=== PATIENT | male | born 1995 | race Caucasian/White ===

== ENCOUNTER 2016-05-26 18:44 | Emergency (ER) | payer BC, OTHER ==
[~2016-05-26] VITALS: Ht 172.7 cm; Wt 111.2 kg
[2016-05-26 18:48] VITALS: TEMP 36.6; Ht 172.7 cm; Wt 111.2 kg
[2016-05-26 19:21] LABS: URINE APPEARANCE CLEAR (CLEAR); URINE BILIRUBIN NEG (NEG); URINE COLOR YELLOW; URINE NITRITE NEG (NEG); URINE PH 5.5 (4.5-7.5); URINE SPECIFIC GRAVITY 1.025 (1.000-1.030); UROBILINOGEN NEG (NEG)
[2016-05-26 19:26] LABS: MANUAL MICROSCOPIC REQUIRED? NO; REVIEW REQ? NO
[2016-05-26] MEDS ORDERED: MULT-506 PO (19:38)
[2016-05-26] MEDS ORDERED: PALI6TAB PO (19:38)
[2016-05-26] MEDS ORDERED: HYDR25CA PO (19:47)
[2016-05-26] MEDS ORDERED: FLUP10TA PO (19:47)
[2016-05-26] MEDS ORDERED: BUPRTAB PO (19:47)
--- NOTE | 2016-05-26 19:52 | EMERGENCY ROOM VISIT NOTE ---
History Report prepared by Lashaun: Jamaica Guevara Under the Supervision of: Dr. Phill Staley M.D. First contact with patient: 19:05 Chief Complaint: MENTAL HEALTH EVALUATION Stated Complaint: MENTAL HEALTH History of Present Illness The patient is a 20 year old male who presents to the Emergency Room for a mental health evaluation after a referral from his doctor. The patient states that his thoughts have been racing constantly beginning a few days ago. He reports that he has a history of depression and his symptoms have been worsening so he called his doctor and he recommended inpatient treatment. He notes that he has been having thoughts of hurting himself with plans to jump in front of traffic or off of a building triggered from feelings of inadequacy. The patient states that he feels that he cannot form rational thoughts, he complains of sensitive hearing following a hallucination of someone screaming in his ear. He notes that he has a psychiatrist and has been taking his prescribed medications. He has occasional alcohol use but none today. He notes no drug use. He denies any ingestions. Pt denies LOC, headache, fevers, chills, diaphoresis, visual changes, neck pain, chest pain, breathing difficulties, nausea, vomiting, abdominal pain, back pain, melena, hematochezia , urinary symptoms, numbness, weakness, lymphadenopathy, rash, or other complaints. Source of History: patient Onset: a few days ago Position: other (mental health) Timing: constant Review of Systems See HPI for pertinent positives and negatives. A total of ten systems were reviewed and were otherwise negative. Past Medical & Surgical Medical Problems: (1) Asthma (2) Depression (3) Schizophrenia Family History No pertinent family history stated. Social History Smoking Status: Current Every Day Smoker Marital Status: single Occupation Status: [employer] student Current/Historical Medications Scheduled Bupropion Hcl (Wellbutrin Xl), 150 TAB PO QAM Fluphenazine Hcl (Prolixin), 10 MG PO QAM Hydroxyzine Pamoate (Vistaril), 25 MG PO HS Multivitamin (Multivitamin), 1 TAB PO DAILY Paliperidone (Invega), 12 MG PO QAM Allergies Coded Allergies: No Known Allergies (Unverified , 05/26/16) Physical Exam Vital Signs Date Time Temp Pulse Resp B/P Pulse Ox O2 Delivery O2 Flow Rate FiO2 05/27/16 00:47 76 20 126/77 98 Room Air 05/26/16 20:40 99 16 130/82 96 Room Air 05/26/16 18:48 36.6 108 18 148/84 96 Room Air Physical Exam GENERAL: Awake, alert, mildly anxious appearing HENT: Normocephalic, atraumatic. TM's normal. Oropharynx unremarkable. EYES: PERRL. EOMI. Normal conjunctiva. Sclera non-icteric. NECK: Supple. No nuchal rigidity. FROM. No JVD or bruit. RESPIRATORY: CTA CARDIAC: RRR. No murmur. ABDOMEN: Soft, non distended. No tenderness to palpation. No rebound or guarding. No masses. MUSCULOSKELETAL: Unremarkable. No edema. No discoloration. Gross motor strength symmetric. NEURO: Cranial nerves 2-12 grossly intact. Normal sensorium. No sensory or motor deficits noted. Speech normal. No pronator drift. SKIN: No rash or jaundice noted. LYMPH: No adenopathy. PSYCH: Depressed mood. Suicidal ideation with plan of jumping into traffic or off of building. Affect is flat. There are some auditory hallucinations present. Medical Decision & Procedures Laboratory Results 05/26/16 19:47 Red Blood Count 4.86, Mean Corpuscular Volume 88.7, Mean Corpuscular Hemoglobin 29.0, Mean Corpuscular Hemoglobin Concent 32.7, Mean Platelet Volume 10.5, Neutrophils (%) (Auto) 74.4, Lymphocytes (%) (Auto) 14.3, Monocytes (%) (Auto) 8.9, Eosinophils (%) (Auto) 2.0, Basophils (%) (Auto) 0.1, Neutrophils # (Auto) 10.14, Lymphocytes # (Auto) 1.95, Monocytes # (Auto) 1.22, Eosinophils # (Auto) 0.27, Basophils # (Auto) 0.02 05/26/16 19:47 Test 05/26/16 19:00 05/26/16 19:47 Urine Color YELLOW Urine Appearance CLEAR (CLEAR) Urine pH 5.5 (4.5-7.5) Urine Specific Stewardson 1.025 (1.000-1.030) Urine Protein NEG (NEG) Urine Glucose (UA) NEG (NEG) Urine Ketones NEG (NEG) Urine Occult Blood NEG (NEG) Urine Nitrite NEG (NEG) Urine Bilirubin NEG (NEG) Urine Urobilinogen NEG (NEG) Urine Leukocyte Esterase NEG (NEG) Urine Opiates Screen NEG (NEG) Urine Methadone, Qualitative NEG (NEG) Urine Barbiturates NEG (NEG) Urine Phencyclidine (PCP) Level NEG (NEG) Ur Amphetamine/Methamphetamine NEG (NEG) MDMA (Ecstasy) Screen POS (NEG) Urine Benzodiazepines Screen NEG (NEG) Urine Cocaine Metabolite NEG (NEG) Urine Marijuana (THC) NEG (NEG) White Blood Count 13.64 K/uL (4.8-10.8) Red Blood Count 4.86 M/uL (4.7-6.1) Hemoglobin 14.1 g/dL (14.0-18.0) Hematocrit 43.1 % (42-52) Mean Corpuscular Volume 88.7 fL (80-100) Mean Corpuscular Hemoglobin 29.0 pg (25-34) Mean Corpuscular Hemoglobin Concent 32.7 g/dl (32-36) Platelet Count 202 K/uL (130-400) Mean Platelet Volume 10.5 fL (7.4-10.4) Neutrophils (%) (Auto) 74.4 % Lymphocytes (%) (Auto) 14.3 % Monocytes (%) (Auto) 8.9 % Eosinophils (%) (Auto) 2.0 % Basophils (%) (Auto) 0.1 % Neutrophils # (Auto) 10.14 K/uL (1.4-6.5) Lymphocytes # (Auto) 1.95 K/uL (1.2-3.4) Monocytes # (Auto) 1.22 K/uL (0.11-0.59) Eosinophils # (Auto) 0.27 K/uL (0-0.5) Basophils # (Auto) 0.02 K/uL (0-0.2) RDW Standard Deviation 47.1 fL (36.4-46.3) RDW Coefficient of Variation 14.5 % (11.5-14.5) Immature Granulocyte % (Auto) 0.3 % Immature Granulocyte # (Auto) 0.04 K/uL (0.00-0.02) Anion Gap 8.0 mmol/L (3-11) Est Creatinine Clear Calc Drug Dose 107.8 ml/min Estimated GFR () 89.8 Estimated GFR (Non- 77.5 BUN/Creatinine Ratio 9.0 (10-20) Calcium Level 8.4 mg/dl (8.5-10.1) Total Bilirubin 0.3 mg/dl (0.2-1) Direct Bilirubin < 0.1 mg/dl (0-0.2) Aspartate Amino Transf (AST/SGOT) 7 U/L (15-37) Alanine Aminotransferase (ALT/SGPT) 30 U/L (12-78) Alkaline Phosphatase 96 U/L (45-117) Total Protein 6.5 gm/dl (6.4-8.2) Albumin 3.4 gm/dl (3.4-5.0) Globulin 3.1 gm/dl (2.5-4.0) Albumin/Globulin Ratio 1.1 (0.9-2) Thyroid Stimulating Hormone (TSH) 0.411 uIu/ml (0.300-4.500) Salicylates Level < 1.7 mg/dl (2.8-20) Acetaminophen Level < 2 ug/ml (10-30) Ethyl Alcohol mg/dL < 3.0 mg/dl (0-3) Laboratory results reviewed by me Medications Administered Medications (Trade) Dose Ordered Sig/Terri Route Start Time Stop Time Status Last Admin Dose Admin Nicotine Polacrilex (Nicorette 2MG Gum) 1 piece PRN STAT MT 05/26/16 22:03 05/26/16 22:04 DC 05/26/16 22:09 1 PIECE Nicotine (Nicoderm Cq 14MG Patch) 1 patch NOW STAT TD 05/26/16 23:24 05/26/16 23:25 DC 05/26/16 23:28 1 PATCH ED Course 1904: The patient was evaluated in room A5. A complete history and physical exam was performed. 2200: I reevaluated the patient. He is a smoker and would like some nicotine gum. 2202: Nicorette 2mg Gum 1 piece MT. 2251: I reevaluated the patient. He has been accepted to [facility] and I signed the paperwork. 2258: The patient is being transferred to a mental health acute care facility for further management. 2301: Upon reexamination, the patient was hemodynamically stable. I discussed the test results and treatment plan with the patient. The patient will be evaluated for further management. Medical Decision Triage Nursing notes reviewed. The patient's presentation and history were concerning for suicidal thoughts. Etiologies such as mood disorder, toxicologic, infection, hypoglycemia, electrolyte abnormalities, cardiac sources, intracerebral event, neurologic, as well as others were entertained. The patient was evaluated. He had suicidal ideation. No medical issues were found on physical examination. Blood work and urinalysis were obtained. The patient was evaluated by the Emergency Room psychiatric supportive employment case manager. The patient had a slight leukocytosis on CBC but no signs of infection or symptoms to suggest infection. He had an unremarkable urine test. Chem panel, Tylenol, salicylate, and ethanol levels were negative. The patient's drug screen did reveal MDMA however the patient is on Wellbutrin. The patient was given nicotine gum as well as a patch. Case management was able to [place] [facility] [place] was [place] for psychiatric [place]. Secure transfer was arranged and the patient was sent for inpatient treatment. His psychiatrist did notify the Emergency Room about the likely sharp of admission. There are no beds available here or the [facility]. The chart was completed utilizing [employer] Speech voice recognition software. Grammatical errors, random word insertions, pronoun errors, and incomplete sentences are an occasional consequence of this system due to software limitations, ambient noise, and hardware issues. Any formal questions or concerns about the content, text, or information contained within the body of this dictation should be directly addressed to the physician for clarification. Impression Primary Impression: Suicidal ideation Additional Impression: Mood disorder Scribe Attestation The scribe's documentation has been prepared under my direction and personally reviewed by me in its entirety. I confirm that the note above accurately reflects all work, treatment, procedures, and medical decision making performed by me. Departure Information Dispostion Mental Health Acute Care Referrals No Doctor, Assigned (PCP) Forms HOME CARE DOCUMENTATION FORM, IMPORTANT VISIT INFORMATION Patient Instructions My [facility] Problem Qualifiers
[2016-05-26 19:59] LABS: BASO % 0.1 %; BASO ABS # 0.02 K/uL (0-0.2); COMPLETE YES; HEMATOCRIT 43.1 % (42-52); IG% 0.3 %; LYMPH % 14.3 %; LYMPH ABS # 1.95 K/uL (1.2-3.4); MEAN CELL VOLUME 88.7 fL (80-100); MEAN CORPUSCULAR HGB CONC 32.7 g/dl (32-36); MEAN PLATELET VOLUME 10.5 fL (7.4-10.4); MONO % 8.9 %; NEUT % 74.4 %; PLATELET COUNT 202 K/uL (130-400); RED BLOOD COUNT 4.86 M/uL (4.7-6.1); WHITE BLOOD COUNT 13.64 K/uL (4.8-10.8)
[2016-05-26 20:10] LABS: BENZODIAZEPINE, URINE NEG (NEG); COCAINE,URINE NEG (NEG); PHENCYCLIDINE, URINE NEG (NEG)
[2016-05-26 20:25] LABS: ALT/SGPT 30 U/L (12-78); AST/SGOT 7 U/L (15-37); BLOOD UREA NITROGEN 12 mg/dl (7-18); CALCIUM 8.4 mg/dl (8.5-10.1); CARBON DIOXIDE 27 mmol/L (21-32); CHLORIDE 107 mmol/L (98-107); GLUCOSE 100 mg/dl (70-99); POTASSIUM 3.7 mmol/L (3.5-5.1); SODIUM 142 mmol/L (136-145)
[2016-05-26 20:29] LABS: ACETAMINOPHEN < 2 ug/ml (10-30)
[2016-05-26 20:35] LABS: ALB/GLOB RATIO 1.1 (0.9-2); ALKALINE PHOSPHATASE 96 U/L (45-117); THYROID STIMULATING HORMONE 0.411 uIu/ml (0.300-4.500)
[2016-05-26] MEDS ORDERED: NICOTINE POLACRILEX 2 MG GUM MT STA (22:03)
[2016-05-26] MEDS ORDERED: NICOTINE 14 MG/24 HR TDSY TD STA (23:24)
[2016-05-27 00:47] VITALS: BP 126/77; PULSE 76; O2SAT 98
== END 2016-05-27 01:15 ==
LOC: C.EDB 18:51 → C.EDA 05-27 01:15
DX: R45.851 Suicidal ideations (principal); F39 Unspecified mood [affective] disorder; J45.909 Unspecified asthma, uncomplicated; F17.200 Nicotine dependence, unspecified, uncomplicated

== ENCOUNTER 2016-09-02 23:35 | Emergency (ER) | payer BC ==
[~2016-09-02] VITALS: Ht 172.7 cm; Wt 112.0 kg
[~2016-09-02 23:35] MED LIST: BUPRTAB PO; FLUP10TA PO; HYDR25CA PO; MULT-506 PO; PALI6TAB PO
[2016-09-02 23:39] VITALS: TEMP 36.5; Ht 172.7 cm; Wt 112.0 kg
[2016-09-03] MEDS ORDERED: LIDOCAINE HCL 2% VISC SOLN 20 ML UDC PO STA
[2016-09-03] MEDS ORDERED: ALUMINUM/MAGNESIUM SUSP 30 ML UDC PO STA
[2016-09-03] MEDS ORDERED: SODIUM CHLORIDE 0.9% 1000ML 1,000 ML IV STA
[2016-09-03] MEDS ORDERED: BUPRTAB51 PO (00:09)
[2016-09-03] MEDS ORDERED: ZOLP10TA PO (00:09)
[2016-09-03] MEDS ORDERED: FLUP5TAB PO ×2 (00:09)
[2016-09-03 00:22] LABS: BASO % 0.3 %; BASO ABS # 0.03 K/uL (0-0.2); COMPLETE YES; EOS % 5.3 %; IG% 0.2 %; LYMPH % 28.1 %; LYMPH ABS # 2.85 K/uL (1.2-3.4); MEAN CELL VOLUME 91.9 fL (80-100); MEAN CORPUSCULAR HGB CONC 31.6 g/dl (32-36); MEAN PLATELET VOLUME 9.9 fL (7.4-10.4); MONO % 11.8 %; NEUT % 54.3 %; PLATELET COUNT 217 K/uL (130-400); RED BLOOD COUNT 4.79 M/uL (4.7-6.1); WHITE BLOOD COUNT 10.16 K/uL (4.8-10.8)
[2016-09-03] MEDS ORDERED: OPTIRAY 320 IV PRN (00:30)
[2016-09-03 00:43] LABS: CALCIUM 8.5 mg/dl (8.5-10.1); CREATININE 1.1 mg/dl (0.60-1.40); POTASSIUM 3.6 mmol/L (3.5-5.1)
[2016-09-03] MEDS ORDERED: PANTOprazole SOD 40 MG TAB PO STA (01:42)
--- NOTE | 2016-09-03 01:42 | EMERGENCY ROOM VISIT NOTE ---
History First contact with patient: 23:50 Chief Complaint: THROAT PAIN/INJURY Stated Complaint: HAS SOMETHING IN HIS THROAT THAT IS SCARING HIM History of Present Illness The patient is a 20 year old male who presents to the Emergency Room with complaints of feeling that something is caught in his throat for the past 2 days that is worse with swallowing but is able to tolerate fluids and food. Patient does smoke and occasionally drinks alcohol. No drug use. Patient states symptoms started when he is smoking a cigarette. He has not tried anything for his symptoms. Patient denies chest pain, dyspnea, fever, chills, cough, congestion, flulike illness, abdominal pain, black or blood in his stool. Review of Systems See HPI for pertinent positives & negatives. A total of 10 systems reviewed and were otherwise negative. Past Medical/Surgical History Medical Problems: (1) Asthma (2) Depression (3) Schizophrenia Social History Smoking Status: Current Every Day Smoker Alcohol Use: occasionally Drug Use: none Marital Status: single Occupation Status: [employer] student Current/Historical Medications Scheduled Bupropion Hcl (Wellbutrin Xl), 300 MG PO QAM Fluphenazine Hcl (Prolixin), 5 MG PO QAM Fluphenazine Hcl (Prolixin), 7.5 MG PO HS Multivitamin (Multivitamin), 1 TAB PO DAILY Paliperidone (Invega), 12 MG PO QAM Zolpidem Tartrate (Ambien), 10 MG PO HS Allergies Coded Allergies: No Known Allergies (Unverified , 09/03/16) Physical Exam Vital Signs Date Time Temp Pulse Resp B/P Pulse Ox O2 Delivery O2 Flow Rate FiO2 09/03/16 00:45 Room Air 09/02/16 23:39 36.5 87 19 136/83 95 Room Air Physical Exam VITALS: Vitals are noted on the nurse's note and reviewed by myself. Vital signs stable. GENERAL: Pleasant male, in no acute distress, nondiaphoretic, well-developed well-nourished. SKIN: The skin was without rashes, erythema, edema, or bruising. There is no tenting of the skin. Capillary reflex less than 2 seconds. HEAD: Normocephalic atraumatic. EARS: External auditory canals clear, tympanic membranes pearly pérez without erythema or effusion bilaterally. EYES: Pupils equal round and reactive to light and accommodation. Conjunctivae without injection, sclerae without icterus. Extraocular movements intact. NOSE: Patent, turbinates without inflammation or discharge. No sinus tenderness. MOUTH: Mucous membranes moist. Pharynx without erythema or exudate. Uvula midline. Airway patent. Tongue does not deviate. NECK: Supple without nuchal rigidity. No lymphadenopathy. No thyromegaly. Cervical spine is nontender. No JVD. HEART: Regular rate and rhythm without murmurs gallops or rubs. LUNGS: Clear to auscultation bilaterally without wheezes, rales or rhonchi. No dullness to percussion. No retractions or accessory muscle use. ABDOMEN: Positive bowel sounds x 4. Normal tympanic percussion. Soft, nontender, without masses or organomegaly. Garcia sign negative. No guarding or rebound tenderness. MUSCULOSKELETAL: No muscle atrophy, erythema, or edema noted. NEURO: Patient was alert and oriented to person place and time. Normal sensation to light and sharp touch. No focal neurological deficits. Medical Decision & Procedures Laboratory Results 09/03/16 00:11 Red Blood Count 4.79, Mean Corpuscular Volume 91.9, Mean Corpuscular Hemoglobin 29.0, Mean Corpuscular Hemoglobin Concent 31.6, Mean Platelet Volume 9.9, Neutrophils (%) (Auto) 54.3, Lymphocytes (%) (Auto) 28.1, Monocytes (%) (Auto) 11.8, Eosinophils (%) (Auto) 5.3, Basophils (%) (Auto) 0.3, Neutrophils # (Auto ) 5.52, Lymphocytes # (Auto) 2.85, Monocytes # (Auto) 1.20, Eosinophils # (Auto ) 0.54, Basophils # (Auto) 0.03 09/03/16 00:11 Test 09/03/16 00:11 White Blood Count 10.16 K/uL (4.8-10.8) Red Blood Count 4.79 M/uL (4.7-6.1) Hemoglobin 13.9 g/dL (14.0-18.0) Hematocrit 44.0 % (42-52) Mean Corpuscular Volume 91.9 fL (80-100) Mean Corpuscular Hemoglobin 29.0 pg (25-34) Mean Corpuscular Hemoglobin Concent 31.6 g/dl (32-36) Platelet Count 217 K/uL (130-400) Mean Platelet Volume 9.9 fL (7.4-10.4) Neutrophils (%) (Auto) 54.3 % Lymphocytes (%) (Auto) 28.1 % Monocytes (%) (Auto) 11.8 % Eosinophils (%) (Auto) 5.3 % Basophils (%) (Auto) 0.3 % Neutrophils # (Auto) 5.52 K/uL (1.4-6.5) Lymphocytes # (Auto) 2.85 K/uL (1.2-3.4) Monocytes # (Auto) 1.20 K/uL (0.11-0.59) Eosinophils # (Auto) 0.54 K/uL (0-0.5) Basophils # (Auto) 0.03 K/uL (0-0.2) RDW Standard Deviation 47.3 fL (36.4-46.3) RDW Coefficient of Variation 14.0 % (11.5-14.5) Immature Granulocyte % (Auto) 0.2 % Immature Granulocyte # (Auto) 0.02 K/uL (0.00-0.02) Anion Gap 7.0 mmol/L (3-11) Est Creatinine Clear Calc Drug Dose 127.9 ml/min Estimated GFR () 109.9 Estimated GFR (Non- 94.8 BUN/Creatinine Ratio 9.0 (10-20) Calcium Level 8.5 mg/dl (8.5-10.1) Medications Administered Medications (Trade) Dose Ordered Sig/Terri Route Start Time Stop Time Status Last Admin Dose Admin Lidocaine HCl (Viscous Lidocaine 2% Soln) 10 ml NOW STAT PO 09/03/16 00:00 09/03/16 00:03 DC 09/03/16 00:19 10 ML Al Hydroxide/Mg Hydroxide 30 ml 30 ml NOW STAT PO 09/03/16 00:00 09/03/16 00:03 DC 09/03/16 00:19 30 ML Sodium Chloride (Nss 1000ml) 1,000 ml @ 999 mls/hr Q1H1M STAT IV 09/03/16 00:00 09/03/16 01:00 DC 09/03/16 00:00 999 MLS/HR ED Course Prior records/ancillary studies reviewed. Triage Nursing notes reviewed. Additional history obtained from family The patient's history was concerning for a dysphagia. Differential diagnosis: Etiologies such as GERD, foreign body, esophagitis, esophageal irritation, streptococcal pharyngitis, mononucleosis, peritonsillar abscess, retropharyngeal abscess, otitis, pneumonia, influenza, as well as others were entertained. ER treatment provided: GI cocktail On reassessment the patient felt better. Diagnostics interpreted by me: The labs revealed no worrisome leukocytosis or electrolyte abnormality Imaging studies: CT NECK: No abscess or bulky lesion. Epiglottis is unremarkable. No airway compromise. Radiologist: Bogdan Grace M.D. This appears to be consistent with irritation that could be from reflux. Patient was neurovascularly and neurologically intact. He was well-appearing. He is tolerating fluids. He felt better to be medicated as above. He was strongly encouraged to quit smoking and to take medications as directed. He is advised follow-up family care in a few days or here in the ER sooner for dysphagia, fevers, black or blood in the stool, worsening signs or symptoms or as needed. Patient no signs of meningitis or airway compromise. He was well- appearing. By the evaluation outlined above emergent etiologies such as peritonsillar abscess, retropharyngeal abscess, otitis, pneumonia, meningitis, urinary tract infection, sepsis, bacteremia, as well as others were deemed relatively unlikely. The pt informed about the findings as listed above. All questions were answered and pleased with the treatment. Return instructions were outlined and the patient was discharged in stable condition. Outpatient prescription management: Protonix Referral: The patient was referred back to their primary care physician for follow-up in 2 to 3 days for a recheck of the current condition. Case reviewed with my attending Medical Decision As above Impression Primary Impression: Throat irritation Additional Impression: GERD (gastroesophageal reflux disease) Departure Information Dispostion Home / Self-Care Condition GOOD Referrals Abraham Gutierrez M.D. (PCP) Patient Instructions My [facility] Additional Instructions Protonix 40 m tablet daily for next 2 weeks. Take this on an empty stomach. Try Maalox or Zantac for breakthrough symptoms for reflux. Avoid large meals. Avoid acidic foods. Rest and drink plenty of fluids as tolerated. Continue current medications. Avoid strenuous activities and anything that worsens your pain. Resume normal activities once your symptoms resolve. Recommend stop smoking. Return to the ER immediately for worsening or persistent chest pain, abdominal pain, black or blood in your stools, vomiting, fevers, chest pains, difficulty breathing, worsening of your condition, or as needed. Follow up with your primary physician in 2-3 days for a recheck of your current condition. Problem Qualifiers
[2016-09-03] MEDS ORDERED: PANT40TA PO (01:43)
[2016-09-03 01:57] VITALS: BP 130/86; PULSE 84; O2SAT 96
--- NOTE | 2016-09-03 06:45 | DIAGNOSTIC IMAGING REPORT ---
CT soft tissue neck SOFT TISSUE NECK WITH CLINICAL HISTORY: severe dysphagia, to abuse dysphagia TECHNIQUE: Transaxial acquisition. Multiple axial reformatted images. COMPARISON STUDY: None FINDINGS: All major soft tissue structures are unremarkable. Salivary glands are within normal limits. Thyroid is symmetric. Glottic and subglottic regions are unremarkable. There is no evidence for airway compromise. IMPRESSION: Negative study Electronically signed by: Javier Cárdenas M.D. 09/03/2016 6:43 AM Dictated Date/Time: 09/03/2016 6:42 AM
== END 2016-09-03 01:57 | disposition home or self-care (01) ==
LOC: C.EDB 23:37 → C.EDC 09-03 01:57
DX: R07.0 Pain in throat (principal); K21.9 Gastro-esophageal reflux disease without esophagitis; J45.909 Unspecified asthma, uncomplicated; F20.9 Schizophrenia, unspecified; F32.9 Major depressive disorder, single episode, unspecified; F17.200 Nicotine dependence, unspecified, uncomplicated; Z79.899 Other long term (current) drug therapy

== ENCOUNTER → 2017-08-27 | Day surgery (SDC) | payer BC ==
[2017-08-17 13:59] VITALS: BMI 38.0
--- NOTE | 2017-08-26 08:35 | History and Physical: Surg Cnt ---
History & Physical Date August 26, 2017. Chief Complaint sinus infections History of Present Illness The patient is a 21 year old male with complaints of chronic sinusitis with CT showing left maxillary sinus fungus ball Past Medical/Surgical History Medical Problems: (1) Asthma (2) Depression (3) Schizophrenia Additional History Hepatic Disease: No Endocrine Disorder: No Kidney Disease: No Hypertension: No Heart Disease: No Bleeding Tendencies: No Infectious Diseases: No Allergies Coded Allergies: NO KNOWN DRUG ALLERGIES (Verified Allergy, Unknown, ., 08/17/17) Uncoded Allergies: ENVIRONMENTAL ALLERGIES (Allergy, Unknown, GRASS, DUST, MOLD, TREES, ) Home Medications Scheduled Dextromethorphan Hbr-Quinidine (Nuedexta), 1 CAP PO QAM [id number] (Deplin 15), 1 CAP PO QAM Paliperidone (Invega), 2 TAB PO HS Zolpidem Tartrate (Ambien), 10 MG PO HS Scheduled PRN Lorazepam (Ativan), 1 MG PO BID PRN for Anxiety Physical Examination Skin: warm/dry, no rash Eyes: normal inspection, EOMI, sclerae normal ENT: normal ENT inspection, pharynx normal Head: normocephalic, atraumatic Neck: supple, no adenopathy, trachea midline Respiratory/Chest: lungs clear, normal breath sounds, no respiratory distress Cardiovascular: regular rate, rhythm, no edema, no murmur Abdomen / GI: normal bowel sounds, non tender Back: normal inspection Extremities: normal inspection, normal range of motion Neurologic/Psych: no motor/sensory deficits, alert, normal reflexes, oriented x 3 Diagnosis sinusitis with left maxillary fungus ball Plan of Treatment endoscopic sinus surgery
[~2017-08-27] VITALS: Ht 172.7 cm; Wt 115.9 kg
[~2017-08-27] MED LIST changes: +ATROPINE SULFATE 0.1 MG/ML 5ML SYR IV PRN; +ATV/1 PO; -BUPRTAB PO; +CEFAZOLIN 2000MG IV PUSH 15 ML IV SCH; +CEFAZOLIN 3000MG IV PUSH 22.5 ML IV SCH; +DEXAMETHASONE SOD INJ 4 MG/ML VIAL ONE; +DEXT20CA PO; +EpHEDrine SULFATE INJ 50 MG/ML AMP IV PRN; +EpINEphrine INJ 1MG/ML AMP 1 MG/ML AMP ONE; +FENTANYL CITRATE INJ 50 MCG/1 ML 2 ML VIAL IV PRN; +FENTANYL CITRATE INJ 50 MCG/1 ML 2 ML VIAL ONE; -FLUP10TA PO; +GLYCOPYRROLATE INJ 0.2 MG/ML VIAL ONE; -HYDR25CA PO; +L-ME1CAP PO; +LACTATED RINGER'S 1000ML 1,000 ML IV SCH; +LIDO 2%/EPINEPHRINE 1:100000 20 ML VIAL ONE; +LIDOCAINE 4% MPF SOAK 5 ML = 1 DOSE ONE; +LIDOCAINE HCL 2% 2 ML VIAL (20MG/ML) ONE; +MIDAZOLAM HCL 1 MG/ML 2ML VIAL ONE; +NEOSTIGMINE METHYLSULFATE 5 MG/5 ML SYR ONE; +ONDANSETRON INJ 2 MG/ML 2 ML VIAL IV PRN; +ONDANSETRON INJ 2 MG/ML 2 ML VIAL ONE; +OXYCODONE/ACETAMINOPHEN 5-325 TAB PO PRN; +PROPOFOL IV EMULSION 10 MG/ML 20 ML VIAL ONE; +ROCURONIUM BROMIDE 10 MG/ML 5 ML VIAL ONE; +SCOPOLAMINE 1.5 MG TDSY TD ONE; +SODIUM CHLORIDE 0.9% 1000ML 1,000 ML IV SCH; +SUCCINYLCHOLINE CHLORIDE 20 MG/ML 10 ML VIAL IV ONE; +TRAM-453 PO; +ZOLP10TA PO
--- NOTE | 2017-08-27 08:03 | History & Physical Bridge Note ---
H&P Re-Evaluation Bridge Note: I have examined the patient, reviewed the History & Physical and in the interval since the performance of the History & Physical I have noted the following changes of clinical significance: No changes noted
[2017-08-27 08:06] VITALS: Ht 172.7 cm; Wt 115.9 kg
--- NOTE | 2017-08-27 10:10 | Discharge Instructions-SurgCtr ---
Discharge Instructions Date of Service August 27, 2017. Visit Reason for Visit: Chronic Sinusitis, Fungus Ball Left Maxillary Discharge Discharge Diagnosis / Problem: same Discharge Goals Goal(s): Therapeutic intervention Activity Recommendations Activity Limitations: resume your previous activity Anesthesia . Post Anesthesia Instructions: If you have had General Anesthesia or IV Sedation: * Do not drive today. * Resume driving when surgeon permits. * Do not make important decisions or sign legal documents today. * Call surgeon for: 1. Temperature elevations greater than 101 degrees F. 2. Uncontrollable pain. 3. Excessive bleeding. 4. Persistent nausea and vomiting. 5. Medication intolerance (nausea, vomiting or rash). * For nausea and vomiting use only clear liquids such as: tea, soda, bouillon until nausea subsides, then gradually increase diet as tolerated. * If you have any concerns or questions, call your surgeon's office. If physician is unavailable and it is an emergency, call 911 or go to the nearest emergency room. . Instructions / Follow-Up Instructions / Follow-Up ACTIVITY RECOMMENDATIONS: * Being up and around is good, but no strenuous activity, heavy lifting or physical exertion for one week. * Keep your head elevated 30 degrees when lying down or sleeping. * Do not blow your nose for 48 hours, sniff back instead. * Avoid hot showers. OVER THE COUNTER MEDICATIONS: * You may use Tylenol * Avoid aspirin or aspirin containing products, e.g. as they may increase bleeding. SPECIAL CARE INSTRUCTIONS: * Expect to have bloody drainage from your nose and/or down your throat for one to three days. Change drip pad as needed. * Begin irrigating your nose with saline solution today, at least six to ten times per day and sniff back to help remove old clots or crust. * You may experience nasal and facial congestion, pain and pressure, this is normal. * Please call with any significant and/or progressive pain, redness, swelling around the eyes, visual changes, fever of 101.5 degrees F, active bleeding or any problems or concerns. * If active bleeding occurs, spray the nose three times at one minute intervals with Afrin spray and call or cell phone: . If unable to reach the doctor, go to the nearest Emergency Department. Special Diet: * Avoid extremely hot fluids. FOLLOW UP VISIT: Follow-up Visit with Dr. Diez If not already scheduled, please call to schedule. Diet Recommendations Home Diet: no limitations Pending Studies Studies pending at discharge: no Medical Emergencies . Who to Call and When: Medical Emergencies: If at any time you feel your situation is an emergency, please call 911 immediately. . Non-Emergent Contact Non-Emergency issues call your: Primary Care Provider . . "Provider Documentation" section prepared by Oralia Diez. . [place] Drug Monitoring Program Search Results: no issues identified
--- NOTE | 2017-08-27 12:26 | [facility] Post Operative Brief Note ---
Immediate Operative Summary Operative Date August 27, 2017. Pre-Operative Diagnosis Sinusitis with Left Maxillary Fungal Ball Post-Operative Diagnosis Sinusitis Procedure(s) Performed Endoscopic Sinus Surgery with Pushfor Navigation, Right and Left Frontal Sinus , Right and Left Maxillary Sinus, and Right and Left Total Ethmoidectomies Surgeon Dr. Diez Communication Analyst Surgeon(s) None Estimated Blood Loss 75 mL Findings Consistent with Post-Op Diagnosis Specimens A.Frontal sinus osteoma, Left Drains None Anesthesia Type General Disposition Accompanied Pt To Recovery: yes Disposition: Recovery Room / PACU
--- NOTE | 2017-08-27 13:52 | OPERATIVE REPORT ---
DATE OF OPERATION: 08/27/2017 PREOPERATIVE DIAGNOSIS: Chronic sinusitis with left maxillary fungus ball. 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 PROCEDURE: Right and left frontal, right and left total ethmoid and right and left maxillary sinus antrostomy. SURGEON: Oralia Diez MD ANESTHESIA: General endotracheal. COMPLICATIONS: None. BLOOD LOSS: 75 mL. HISTORY: This 21-year-old presented with 1 year history of recurrent chronic sinusitis, chronic nasal obstruction. He was evaluated by his MD with CT of the head and neck. This showed an opacification with hyperlucency of the left maxillary sinus consistent with a fungus ball. He was brought to the operating room for FESS/BSP, removal of fungus ball. FINDINGS OF PROCEDURE: The left maxillary sinus was widely open with no sign of fungus ball and he was found to have a left frontal sinus osteoma at the opening of the left nasofrontal duct which was removed. DESCRIPTION OF PROCEDURE: The patient brought to the operating room and placed in supine position. General endotracheal anesthesia was induced, prepped, draped in usual sterile manner. The nose was decongested using the cottonoids with a solution of 4 mL of 4% Xylocaine mixed with 1 mL of epinephrine. Injection of 2% Xylocaine with 1:100,000 strength epinephrine was also used. BrainLAB device was calibrated and used for the entire procedure. The left nasofrontal duct could not be cannulated initially because of blockage which was found to be due to osteoma. The BrainLAB device was coupled with the shaver and this was used to open up the nasofrontal duct. The agger nasi cell was opened of its anterior and posterior wall. This opened up the nasofrontal duct area which was found using the seeker and also using the pointer. The osteoma was found to be blocking the nasofrontal duct. The osteoma was carefully teased away from the lateral wall which is the orbit using the seeker and then using the pointer and also using the bone curette dissecting the osteoma away from the surrounding mucosa and the lamina papyracea. In this manner, the osteoma was removed, keeping the lamina papyracea and the mucosa intact. The nasofrontal duct was still unable to be cannulated. Therefore, the mucosa there was left untouched other than removing the osteoma from the nasal frontal duct. At this point, total ethmoidectomy was performed opening of the bullae ethmoidalis going through the ground lamella into the posterior ethmoid air cells, delineating the skull base superiorly and the lamina papyracea laterally with the BrainLAB device and then opening up all the posterior ethmoid air cells exonerating all the posterior and all the anterior ethmoid air cells up to the previously delineated nasofrontal duct. The left maxillary sinus was dilated using the 6 mm balloon and then opened using the seeker and also using the backbiting Blakesley forceps. The backbiting forceps were used to remove the residual uncinate process and also opening up, also widely opening up the left maxillary sinus. The maxillary sinus was inspected using the 45 degrees endoscope. No evidence of fungus was found. The left maxillary sinus was irrigated clean with saline. Attention was turned to the right side. The right nasofrontal duct was cannulated, guidewire, dilated using the 6 mm balloon. The guidewire was left in place as a marker. The frontal sinusotomy was performed with the shaver coupled with the BrainLAB device, removing the anterior and then the posterior wall of the agger nasi cell, leaving the mucosa there in the nasofrontal duct intact. At this point, total ethmoidectomy was performed with the shaver opening up the anterior wall, then the posterior wall of the agger nasi cell, leaving the mucosa in the nasofrontal duct intact. At this point, the total ethmoidectomy was performed using the shaver, again, coupled with the BrainLab device going through the bullae ethmoidalis and through the ground lamella into the posterior ethmoid air cells, delineating the posterior most ethmoid air cell and then opening up all the posterior and all the anterior ethmoid air cells up to the previously dilated nasofrontal duct. Maxillary sinus was dilated using the 6 mm balloon and then opened using the shaver by removing the polypoid mucosa at the posterior border which is the anterior wall of the bullae ethmoidalis. The contour stent was placed in the right nasofrontal duct and the Propel stents were placed in both middle meatus areas. The patient tolerated the procedure well and was taken to recovery area in satisfactory condition. I attest to the content of the Intraoperative Record and any orders documented therein. Any exceptions are noted below. MARCIA
[2017-08-27 14:21] VITALS: BP 114/78; PULSE 86; TEMP 36.7; O2SAT 93
--- NOTE | 2017-08-27 15:39 | Anesthesia Progress Nt - [facility] ---
Anesthesia Post Op Note Date & Time August 27, 2017 at 15:06 Vital Signs Pain Intensity: 0 Vital Signs Past 12 Hours Date Time Temp Pulse Resp B/P (MAP) Pulse Ox O2 Delivery O2 Flow Rate FiO2 08/27/17 14:21 36.7 86 20 114/78 (90) 93 Room Air 08/27/17 13:50 102 20 128/84 (99) 93 Room Air 08/27/17 13:35 142/82 08/27/17 13:33 149/85 08/27/17 13:33 36.8 82 20 149/85 95 Room Air 08/27/17 13:32 74 14 90 08/27/17 13:32 74 14 08/27/17 13:31 98 13 08/27/17 13:31 100 13 94 08/27/17 13:30 136/91 08/27/17 13:27 137/80 08/27/17 13:26 93 25 08/27/17 13:26 91 25 93 08/27/17 13:25 160/99 08/27/17 13:21 84 13 08/27/17 13:21 82 13 91 08/27/17 13:20 140/98 08/27/17 13:16 78 12 08/27/17 13:16 77 12 99 08/27/17 13:15 135/94 08/27/17 13:11 83 25 91 08/27/17 13:11 84 25 08/27/17 13:10 155/87 08/27/17 13:09 84 18 98 08/27/17 13:09 83 18 08/27/17 13:05 152/98 08/27/17 13:04 87 17 08/27/17 13:04 87 17 98 08/27/17 13:01 146/89 08/27/17 12:59 89 27 08/27/17 12:59 89 27 97 08/27/17 12:55 113/82 08/27/17 12:54 141 08/27/17 12:54 36.8 92 18 113/82 97 Humidified Oxygen 5 Mask 08/27/17 12:54 141 107/69 90 08/27/17 08:00 36.4 74 20 103/70 (81) 95 Room Air Notes Mental Status: alert / awake / arousable, participated in evaluation Pt Amnestic to Procedure: Yes Nausea / Vomiting: adequately controlled Pain: adequately controlled Airway Patency, RR, SpO2: stable & adequate BP & HR: stable & adequate Hydration State: stable & adequate Anesthetic Complications: no major complications apparent The patient is a 21 y/o male with a h/o Asthma, THOMAS ( noncompliant with CPAP) , GERD, Anxiety, Depression, obesity and +tob who is s/p Endoscopic sinus surgery with Dr. Diez. Preoperatively the patient's HR and BP were 74 and 103/ 70 respectively. While moving the patient over from the bed to the OR table it was noted from the pulse oximeter that the patient's HR nino to the 160s. Once the cardiac electrodes were placed, however the HR returned to normal and the patient was in NSR HR 80s. The patient remained hemodynamically stable throughout the case with HRs in the 60s-70s BPs in the 100s-120s/40s-60s. I was called into the room shortly after extubation by the HAND ALTERATIONS TAILOR. When I arrived in the room, the HAND ALTERATIONS TAILOR and Dr. Mosley were assisting the patient with ventilation as he was having some upper airway obstruction likely due to his history of THOMAS as well as being unable to breath through his nose from the surgery. His oxygen saturation briefly dropped to the mid 88% but then quickly nino to the 90s. The patient's HR had also risen to the 160s and it appeared that he may be in SVT. He was given 40mg IV Esmolol which decreased his HR to 120s-130s. The patient's BP remained stable the entire time in the 140s/60s. After several minutes, once the patient became more alert, his breathing improved and he did not require any assistance. A 12 lead EKG was done and showed Atrial fibrillation with RVR HR 130. The patient was alert and responsive and all other vital signs were stable so he was taken to PACU. After several minutes of arriving in PACU, the patient spontaneously converted to a normal sinus rhythm with HR in the 80s. He stated that he has had a rapid heart rate in the past when he has felt anxious. He again denied drug use other than a history of cocaine use approximately 6 years ago. He does drink a lot of caffeine. The patient did well for the remainder of recovery and stayed in NSR with HR 80s. I called Dr. Cheek with cardiology when the patient was in recovery. He stated that because the patient experienced narrow complex tachycardias whether it be SVT or atrial fibrillation that as long as he was stable and back to a normal sinus rhythm that he could go home and be followed with cardiology as an outpatient. I informed the patient and his mother of the patient's perioperative events and wrote down the appointment time for them. I got the patient an appointment with Dr. Cheek on September 04 at 3:45. I recommended that he avoid caffeine and try and stay hydrated. I also recommended that he establishes a PCP and instructed him to go to the ED with any chest pain, shortness of breath, lightheaded or dizziness, rapid or irregular heart rate or with any other concerns. He understands and agrees. All questions were answered.
== END | disposition home or self-care (01) ==
LOC: X.SURG 07:44
PROVIDERS: ATTEND Otolaryngology
DX: J32.9 Chronic sinusitis, unspecified (principal); D16.4 Benign neoplasm of bones of skull and face; J45.909 Unspecified asthma, uncomplicated; F32.9 Major depressive disorder, single episode, unspecified; F20.9 Schizophrenia, unspecified